=== PATIENT | female | born 1940 | race Caucasian/White ===

== ENCOUNTER 2017-05-26 00:58 | Day surgery (SDC) | payer MEDICARE ==
[2017-05-26] VITALS (8 sets, daily range): BP systolic 101–142; BP diastolic 49–82; PULSE 64–96; RESP 14–20; O2SAT 96–100
[~2017-05-26] VITALS: Ht 162.6 cm; Wt 73.0 kg
[~2017-05-26 00:58] MED LIST: AMIO200T PO; LEVO137T2 PO; LOVA20TA PO; PANT40TA2 PO; PROP10TA8 PO; WARF1TAB6 PO; WARF4TAB6 PO
[2017-05-26] MEDS ORDERED: Propofol 10,000 mCg/mL 20 mL Inj ONE (00:59)
[2017-05-26] MEDS ORDERED: 0.9% Sodium Chloride 1,000 ML IV SCH (07:45)
[2017-05-26] MEDS ORDERED: Atropine 1 mg/10 mL (Code) Syringe ONE (10:21)
--- NOTE | 2017-05-26 11:07 | PCM.HPANE ---
Patient Data Surgeon Admitting Provider: Attending Provider:Daryl Olivarez MD Primary Care Physician:Nat Pelletier MD Other Provider:Jeninfer Muñoz Anesthesia Reason for Visit Paroxysmal Atrial Fibrillation Ht/WT & BMI Body Mass Index Allergies Coded Allergies: No Known Allergies (Verified Allergy, Unknown, 03/04/17) Past Anesthesia History Anesthesia History: Denies:: Anesthesia Reactions Diabetes History Hx Diabetes?: No MRSA MRSA: No Medications Reported Medications Propranolol HCl 10 Mg [id number] Mg PO BID 90 Days Ref 0 05/25/17 Lovastatin 20 Mg [id number] Mg PO HS #30 TABLET Ref 0 05/25/[address] (Protonix)40 Mg [id number] Mg PO DAILY acid reflux Ref 0 03/04/17 Warfarin Sodium 1 Mg Tablet1 Mg PO tu,fr afib 30 Days Ref 0 03/04/17 Amiodarone 200 Mg [id number] Mg PO DAILY Ref 0 03/04/17 Warfarin Sodium 4 Mg Tablet2 Mg PO Sa,[place],We,Th 30 Days Ref 0 08/06/15 Levothyroxine 137 Mcg [id number] Mcg PO DAILY 30 Days Ref 0 03/02/15 Discontinued Reported Medications Cholestyramine (Cholestyramine Packet)4 Gm Packet4 Gm PO DAILY DIARREHEA Ref 0 03/04/17 Multivitamin (Multi Vitamin Daily)1 Each Tablet1 Each PO DAILY 30 Days Ref 0 03/02/15 History History of ENT Problems?: Yes HEENT History: Positive for:: Cataracts Sinus Problem (hayfever) Denies:: Dysphagia Denture Type: Full- Upper Partial- Lower Teeth Condition: Within Normal Limits Hx of Heart Problems?: Yes Cardiovascular History: Positive for:: Congestive Heart Failure (currently on this admission) Edema Heart Murmur Hypertension Irregular Heartbeat (hx of afib) Denies:: Cardiac Surgery Chest Pain Pacemaker Thrombophlebitis Hx of Respiratory Problem?: Yes Respiratory History: Positive for:: Dyspnea Pneumonia Denies:: Asthma COPD Chest Surgery Tuberculosis Hx Neurologic Problems?: Yes Neurological History: Positive for:: Headaches Denies:: Alzheimer's Disease CVA Dizziness Parkinson's Disease Seizures Hx of GI Problems?: Yes Hx of Problems?: Yes Genitourinary History: Positive for:: Urinary Tract Infection Denies:: HX of Hemodialysis Kidney Stones HX of Peritoneal Dialysis: No Female Hx: Denies:: Currently Endometriosis Pelvic Inflammatory Problems with Breasts? Hx Musculoskeletal Problems?: Yes Musculoskeletal History: Denies:: Back Injury Joint Replacement Musculoskeletal Trauma Hx of Psycho/Social Problems?: No Psycho Social History: Denies:: Anxiety Bipolar Disorder Hx Depression Suicide Attempt Hx Surgeries?: Yes (TONSILS) Hx Any Other Health Problems?: Yes Other History: Positive for:: Hospitalization ([facility] , Afib, ) Thyroid Disease (low thyroid) Denies:: Cancer History Blood Transfusions: Denies:: Blood Transfuse Reaction Blood Transfusions Hx Diabetes: No Hx Alcohol Use: NoHx Substance Use: No Smoking Status: Never Smoker Have You Smoked inLast 12 mo: No Stop/Bang Risk Assessment Category Category 1A: Patient has history of documented sleep apnea, and HAS NOT received any narcotic, sedative or anesthesia administration during this stay. Category 1B: Patient has history of documented sleep apnea, and HAS received any narcotic , sedative or anesthesia administration during this stay Category 2: Patient has SUSPECTED Obstructive Sleep Apnea, and HAS received any narcotic , sedative or anesthesia administration during this stay. Category 3: Patient has SUSPECTED Obstructive Sleep Apnea and HAS NOT received narcotic, sedative or anesthesia administration during this stay. Category 4: Outpatient in Procedural Areas with known sleep apnea or who screen positive for High Risk via the STOP/BANG questionnaire. Exam Exam General Appearance: Alert, Oriented X3, Cooperative, No Acute Distress HEENT/AIRWAY: MP 2 Lungs: Normal Air Movement Heart: Other (Afib, IRIR) Plan Impression Patient chart reviewed, patient interviewed and anesthestic plan with risks, benefits, and alternatives discussed, and informed consent obtained. NPO per Anesth. Guidelines: Yes ASA Physical Status: ASA3 Severe Disease Anesthetic Plan: GA Bene/Risks/Altern/Consents: Yes HP Complete Prior to Induction: Yes Judah Madison MD May 26, 2017 11:07
[2017-05-26 11:18] LABS: BASOPHILS % (AUTO) 0.4 % (0-3); EOSINOPHILS % (AUTO) 1.6 % (0-5); MONOCYTES % (AUTO) 7.9 % (4-12); Mean Corpuscular Hemoglobin 29.8 pg (27.0-35.0); Mean Corpuscular Volume 88.5 fL (81-100); NEUTROPHILS % (AUTO) 55.2 % (40-74); Platelet Count 267 bil/L (150-400)
--- NOTE | 2017-05-26 12:00 | OP ---
[address] [address] OPERATIVE REPORT PATIENT: CAMDEN KEITH : 1940 MR#: [id number] ADMIT: 05/26/2017 JOB ID: [id number] DATE OF SURGERY: 05/26/2017 SURGEON: Daryl Olivarez MD PREOPERATIVE DIAGNOSIS(ES): Atrial Fibrillation. POSTOPERATIVE DIAGNOSIS(ES): Atrial Fibrillation. PATIENT PROFILE: The patient is a 76-year-old lady with history of paroxysmal atrial fibrillation on chronic anticoagulation, hypertension, hypercholesterolemia, and obstructive sleep apnea. The patient went into atrial fibrillation for the past month. PROCEDURE: Synchronous cardioversion. COMPLICATIONS: None. METHOD: Synchronous cardioversion was performed in the [facility]. IV anesthesia was given by . Synchronous cardioversion was delivered with biphasic 120 joules. The atrial fibrillation was successfully converted to normal sinus rhythm. [facility]
--- NOTE | 2017-05-26 12:03 | PCM.ANEP1 ---
Post Anesthesia PACU Phase 1 Assessment Vital Signs Vital Signs Date Time Temp Pulse Resp B/P Pulse Ox O2 Delivery O2 Flow Rate FiO2 05/26/17 11:55 71 18 112/58 99 Room Air 05/26/17 11:50 66 16 109/55 97 Room Air 05/26/17 11:45 67 14 106/53 100 Nasal Cannula 2.00 05/26/17 11:43 64 16 101/49 100 Nasal Cannula 2.00 05/26/17 11:36 96 16 05/26/17 11:05 36.5 96 16 142/82 96 Room Air Anesthetic Administered: GA Level of Alertness: Awake, talking Pain: No Nausea or Vomiting: No CV Function & Hydration Stable: Yes Airway Device: None Oxygen Delivery: Room Air Lungs: Normal Air Movement PACU Phase 2 Assessment Complications: No Follow up Care: N/A Patient Instructions Provided: N/A Judah Madison MD May 26, 2017 12:03
--- NOTE | 2017-05-26 12:36 | NUR ---
REKHA Admit to [facility] bed 1 at 1040 for cardioversion with anesthesiologist. at bedside. Patient denies pain. procedure complete with successful cardioversion to sinus rhythm. When patient fully awake, taking PO and ambulatory, denied need to void, discharged home with . Instructions reviewed, written information given and questions answered.
== END 2017-05-26 23:59 | disposition home or self-care (01) ==
LOC: SOUO 00:58
PROVIDERS: ATTEND Internal Medicine Interventional Cardiology
DX: I48.0 Paroxysmal atrial fibrillation (principal); Z79.01 Long term (current) use of anticoagulants; I34.0 Nonrheumatic mitral (valve) insufficiency; I10 Essential (primary) hypertension; E78.00 Pure hypercholesterolemia, unspecified; G47.33 Obstructive sleep apnea (adult) (pediatric); E03.9 Hypothyroidism, unspecified; I87.2 Venous insufficiency (chronic) (peripheral); Z79.899 Other long term (current) drug therapy
CPT/HCPCS: 36415; 80048; 85025; 92960; 93005; J2704